=== PATIENT | female | born 1980 | race Two or more races ===

== ENCOUNTER 2020-08-07 02:45 | Emergency (ER) | payer OTHER, SELFPAY ==
[2020-08-07 02:53] VITALS: BP 191/130; PULSE 90; RESP 18; TEMP 36.9; O2SAT 95; BMI 48.6
--- NOTE | 2020-08-07 04:43 | ED_ITS ---
HPI - General Adult General Chief complaint: General Medical Stated complaint: Laceration Time Seen by Provider: 08/07/20 03:49 Source: patient Mode of arrival: EMS Limitations: no limitations History of Present Illness HPI narrative: Patient comes emergency room complaining of a mechanical fall. Patient states prior to arrival, she was using the restroom, her pants and underwear got tangled around her feet and she fell, on her way down she hit her eyebrow on the sink. Patient denies being on blood thinners, did not lose consciousness. Patient denying pain anywhere else. Patient states that she is allergic to lidocaine and Novocain, states it causes tissue necrosis. complaint: Laceration Related Data Allergies Allergy/AdvReac Type Severity Reaction Status Date / Time fluoxetine [From PROZAC] Allergy Severe THROAT Unverified 04/11/20 17:07 CLOSED Sulfa (Sulfonamide Allergy Intermediate HIVES Unverified 04/11/20 17:07 Antibiotics) [SULFA (SULFONAMIDE ANTIBIOTICS)] sulfamethoxazole Allergy Intermediate HIVES Unverified 04/11/20 17:07 [From BACTRIM] trimethoprim [From BACTRIM] Allergy Intermediate HIVES Unverified 04/11/20 17:07 latex [LATEX] Allergy Mild RASH Unverified 04/11/20 17:07 lidocaine [LIDOCAINE] Allergy Mild BURNING Unverified 04/11/20 17:07 SENSATION procaine [From NOVOCAIN] Allergy Mild RASH Unverified 04/11/20 17:07 codeine [CODEINE] Allergy Unknown DIFF Unverified 04/11/20 17:07 BREATHING From CELEXA Allergy Unknown DIFF Uncoded 04/11/20 17:07 BREATHING Review of Systems Review of Systems: Constitutional : No Weight loss, No Fever, No Chills, No Night Sweats, No Fatigue, No Malaise ENT/Mouth : No Hearing loss, No Ear Pain, No Nasal Congestion, No Sinus Pain, No Hoarseness, No sore throat, No Rhinorrhea, No Swallowing Difficulty Eyes: No Eye Pain, No Swelling, No Redness, No Foreign Body, No Discharge, No Vision Changes Cardiovascular : No Chest Pain, No SOB, No Dyspnea on Exertion, No Orthopnea, No Edema, No Palpitations Respiratory : No Cough, No Sputum, No Wheezing, No Smoke Exposure, No Dyspnea Gastrointestinal : No Nausea, No Vomiting, No Diarrhea, No Constipation, No abdominal Pain, No Hematochezia, No Melena Genitourinary : no irregular bleeding, No Dysuria, No Urinary Frequency, No Hematuria, No Urinary Incontinence, No Urgency, No Flank Pain, No Urinary Flow Changes, No Hesitancy Musculoskeletal : No joint pain, No Myalgias, No Joint Swelling Skin : Laceration to right eyebrow Neuro : No Weakness, No Numbness, No Paresthesias, No Loss of Consciousness, No Dizziness, No Headache Psych : No Anxiety/Panic, No Depression, No SI/HI/AH/VH, No Social Issues, Heme/Lymph: No Bruising, No Bleeding,No Lymphadenopathy Endocrine : No Polyuria, No Polydipsia, No Temperature Intolerance [facility] Social History Social History Smoking Status: Current every day smoker Use of substances other than those prescribed or required for medical reasons: Yes Substance Use Type: Heroin and IV Drugs Substance Use Frequency: Chronic Longstanding Last Used Substance: Unknown Advance Directives: No Physical Exam Vital Signs: Vital Signs: Last Vital Signs Temp 98.5 F 08/07/20 02:53 Pulse 97 08/07/20 06:39 Resp 18 08/07/20 06:39 BP 139/105 H 08/07/20 06:39 Pulse Ox 95 08/07/20 06:39 Body Mass Index 48.6 Appearance: Alert. Oriented X3. No acute distress. Eyes: Pupils equal, round and reactive to light. ENT: Pharynx normal. Neck: Normal inspection. Neck supple. No lymph nodes noted. No crepitus CVS: Normal heart rate and rhythm. Pulses normal. Normal S1 and S2 Respiratory: No respiratory distress. Breath sounds normal. No Wheezing. No rales Abdomen: Soft and nontender. No rigidity. No distention. good BS x4 Skin: Skin warm and dry. Patient has a large laceration to the forehead and it is deep. Bleeding controlled. Extremities: No lower extremity edema. No lower extremity edema. No Lacerations. No Rash Neuro: Oriented X 3. No motor deficit. No sensory deficit. Moving all extermities. No slurred speech. Course Course Course Narrative: Patient's laceration needs to be repaired in 2 layers. Patient is allergic to lidocaine, patient will be given ketamine. Patient was informed of what to expect with ketamine. Patient agrees and consents to procedure and ketamine use. Patient received 2 milligrams/kilogram IM, tolerated well the procedure. Patient's blood pressure increased to 260 systolic. She was given 100 mg of PO labetalol, now 160 systolic, heart rate 97, patient is waking up, states she feels well. sign out given to Dr. Mack Procedures Laceration Laceration 1: Site: face and other Side (If applicable): right Size (cm): 4 Description: linear Depth: involves muscle layer Pre-repair: wound explored Skin layer closed with: nylon Size (cm): 4-0 Number of sutures: 6 Technique: simple, interrupted Subcutaneous layer closed with: chromic gut Size: 6-0 Technique: running Discharge Plan Discharge Clinical Impression: Laceration Patient Disposition: Home, Self-Care Instructions: Laceration (ED) Additional Instructions: Your stitches need to be removed in 7-10 days. If you see any signs of infection such as pus drainage, fever, redness, please return to the emergency room. Please follow-up with your primary care physician tomorrow. If you have any worsening or new symptoms, please return to the emergency room or call 911
[2020-08-07] MEDS: Ketamine HCl 500 MG/5 ML VIAL 498.952 MG IM (05:02)
[2020-08-07] MEDS: ondansetron HCL 4 MG/2 ML VIAL IV (05:26)
--- NOTE | 2020-08-07 05:26 | PC.NURSE ---
patient given im ketamine due to allergies for sitches. provider placed 7 stitches in rt eyebrow. 4mg zofran given im with verbal order.
[2020-08-07 05:28] VITALS: BP 144/80; RESP 110; O2SAT 99
--- NOTE | 2020-08-07 05:32 | PC.NURSE ---
md aware of htn.
--- NOTE | 2020-08-07 05:35 | PC.NURSE ---
plan of care is to reassess bp when patient is awake.
[2020-08-07 05:43] VITALS: BP 186/140; PULSE 109
[2020-08-07] MEDS: Labetalol HCL 100 MG TABLET PO (05:43)
[2020-08-07 06:39] VITALS: BP 139/105; PULSE 97; RESP 18; O2SAT 95
[2020-08-07 08:31] VITALS: BP 142/81; PULSE 85; RESP 16; O2SAT 97
== END 2020-08-07 08:49 | disposition home or self-care (01) ==
PROVIDERS: Emergency Provider Emergency Medicine
DX: S01.81XA Laceration without foreign body of other part of head, initial encounter (principal); W18.12XA Fall from or off toilet with subsequent striking against object, initial encounter; F11.90 Opioid use, unspecified, uncomplicated; Y93.89 Activity, other specified; Y92.012 Bathroom of single-family (private) house as the place of occurrence of the external cause; Y99.9 Unspecified external cause status; F17.200 Nicotine dependence, unspecified, uncomplicated
CPT/HCPCS: 12052; 96372; 96374; 99284; J2405